=== PATIENT | male | born 2000 | race Two or more races ===

== ENCOUNTER 2024-03-29 03:24 | Emergency (ER) | payer OTHER ==
[~2024-03-29] VITALS: Ht 188 cm; Wt 95.3 kg
[2024-03-29 03:32] VITALS: BP 125/86; TEMP 98.6
[2024-03-29] MEDS ORDERED: TDAP [DIPH/PERTUSSIS/TET] 0.5 ML VIAL IM ONE (03:55)
[2024-03-29] MEDS: TDAP [DIPH/PERTUSSIS/TET] 0.5 ML VIAL IM ONE (04:03)
[2024-03-29 04:32] VITALS: O2SAT 98
== END 2024-03-29 04:33 ==
LOC: ER 03:30
DX: S01.01XA Laceration without foreign body of scalp, initial encounter (principal); W22.8XXA Striking against or struck by other objects, initial encounter; Y93.89 Activity, other specified; Y92.89 Other specified places as the place of occurrence of the external cause; Y99.8 Other external cause status
CPT/HCPCS: 90715